=== PATIENT | male | born 1950 | race Caucasian/White ===

== ENCOUNTER 2017-10-22 06:30 | Day surgery (SDC) | payer MEDICARE, BC ==
[~2017-10-22] VITALS: Ht 172.7 cm; Wt 77.0 kg
[~2017-10-22 06:30] MED LIST: ADVIL200 MG PO; ASPIRIN E.C. 8181 MG PO; CLARITIN 1010 MG/TAB PO; CRESTOR 10MG10 MG PO; DEPO-TESTOS200 MG/M1 IM; FLOMAX 0.40.4 MG/CAP PO; HCTZ 25MG TAB25 MG PO; MACRODANTIN100 PO; MICARDIS80 MG PO; NORCO 325 MG-51 TAB PO; NORVASC 10MG10 MG PO; PYRIDIUM 100MG100 MG; PYRIDIUM 100MG100 MG PO; SENOKOT S 50 MG1 TAB PO; SINGULAIR 110 MG/TAB PO; TOPAMAX50 MG PO; TYLENOL 500MG500 MG PO; ZOFRAN 4MG T4 MG/TAB PO
[2017-10-22 06:47] VITALS: BP 121/79; PULSE 89; TEMP 97.5
[2017-10-22 08:25] VITALS: BP 97/61; PULSE 61; TEMP 98.5
[2017-10-22 08:40] VITALS: BP 96/65; PULSE 71
[2017-10-22 08:55] VITALS: BP 95/65; PULSE 66
[2017-10-22 09:51] VITALS: BP 106/68; PULSE 75
== END 2017-10-22 09:26 | disposition home or self-care (01) ==
LOC: SDCO 06:30
DX: Z12.11 Encounter for screening for malignant neoplasm of colon (principal); D12.0 Benign neoplasm of cecum; D12.3 Benign neoplasm of transverse colon; K63.5 Polyp of colon; K29.50 Unspecified chronic gastritis without bleeding; K29.00 Acute gastritis without bleeding; E78.2 Mixed hyperlipidemia; I10 Essential (primary) hypertension; J32.9 Chronic sinusitis, unspecified; G43.909 Migraine, unspecified, not intractable, without status migrainosus; J30.9 Allergic rhinitis, unspecified; Z79.82 Long term (current) use of aspirin; Z98.52 Vasectomy status; Z88.1 Allergy status to other antibiotic agents; Z88.8 Allergy status to other drugs, medicaments and biological substances; Z82.49 Family history of ischemic heart disease and other diseases of the circulatory system; Z80.0 Family history of malignant neoplasm of digestive organs; Z80.3 Family history of malignant neoplasm of breast
CPT/HCPCS: J2250; J3010; J7030

== ENCOUNTER 2018-12-24 08:05 | Day surgery (SDC) | payer MEDICARE, BC ==
[~2018-12-24] VITALS: Ht 172.7 cm; Wt 76.5 kg
[2018-12-24] VITALS (13 sets, daily range): BP systolic 101–138; BP diastolic 49–96; PULSE 75–111; TEMP 97.3–99.1
[2018-12-24] MEDS ORDERED: VITAMIN D 50,1.25 MG PO (09:28)
[2018-12-24] MEDS ORDERED: ZOFRAN ODT4 MG PO (09:29)
[2018-12-24] MEDS ORDERED: SYNTHROID0.05 MG/TA PO (09:29)
[2018-12-24] MEDS ORDERED: PROZAC 10MG10 MG PO (09:30)
[2018-12-24] MEDS ORDERED: WELLBUTRIN 75MG75 MG PO (09:30)
[2018-12-24] MEDS ORDERED: VITAMIN B11000 MCG/M IM (09:34)
[2018-12-25 04:20] VITALS: BP 133/74; PULSE 82; TEMP 98.5
[2018-12-25 08:24] VITALS: BP 128/78; PULSE 92; TEMP 98
[2018-12-25 11:55] VITALS: BP 126/68; PULSE 73; TEMP 97.7
[2018-12-25 16:29] VITALS: BP 128/72; PULSE 78
[2018-12-25 20:15] VITALS: BP 142/75; PULSE 73; TEMP 97.8
[2018-12-25 23:49] VITALS: BP 127/68; PULSE 66; TEMP 99
[2018-12-26 05:37] VITALS: BP 166/85; PULSE 94; TEMP 97.8
[2018-12-26 07:17] VITALS: BP 139/78; PULSE 82; TEMP 97.7
[2018-12-26 07:50] VITALS: BP 130/81; PULSE 74; TEMP 97.6
== END 2018-12-26 12:05 | disposition home or self-care (01) ==
LOC: SDCO 08:05 → SURG 13:46 → SDCO 12-26 12:05
DX: N40.1 Benign prostatic hyperplasia with lower urinary tract symptoms (principal); N13.8 Other obstructive and reflux uropathy; R33.8 Other retention of urine; N21.0 Calculus in bladder; J30.89 Other allergic rhinitis; J32.9 Chronic sinusitis, unspecified; E78.5 Hyperlipidemia, unspecified; I10 Essential (primary) hypertension; G43.909 Migraine, unspecified, not intractable, without status migrainosus; G20 Parkinson's disease; R73.03 Prediabetes; E23.0 Hypopituitarism; M19.90 Unspecified osteoarthritis, unspecified site; Z90.49 Acquired absence of other specified parts of digestive tract; Z79.82 Long term (current) use of aspirin; Z88.1 Allergy status to other antibiotic agents; Z88.8 Allergy status to other drugs, medicaments and biological substances; Z80.3 Family history of malignant neoplasm of breast; Z80.0 Family history of malignant neoplasm of digestive organs; Z82.49 Family history of ischemic heart disease and other diseases of the circulatory system
CPT/HCPCS: OP; J1100; J2370; J2405; J2704; J2765; J3010; J7120